=== PATIENT | female | born 2005 | race Caucasian/White ===

== ENCOUNTER 2025-06-22 07:40 | Emergency (ER) | payer OTHER ==
[~2025-06-22] VITALS: Ht 170.2 cm; Wt 90.7 kg
[2025-06-22] MEDS ORDERED: BUSP5 PO (07:54)
[2025-06-22] MEDS ORDERED: LATUDA40 M1 PO (07:54)
[2025-06-22] MEDS ORDERED: AMOCLA875 PO (07:55)
[2025-06-22] MEDS ORDERED: DESV50 PO (07:55)
[2025-06-22] MEDS ORDERED: DIVA250ER PO (07:55)
[2025-06-22] MEDS ORDERED: DESVENLAFAXINE50 MG PO (07:56)
[2025-06-22 08:33] LABS: BASOPHILS ABSOLUTE AUTO 0.02 K/mm3 (0.00-0.23); BASOPHILS PERCENT AUTO 0 % (0-2); EOSINOPHILS ABSOLUTE AUTO 0.00 K/mm3 (0.00-0.68); EOSINOPHILS PERCENT AUTO 0 % (0-6); Hematocrit 40.1 % (33.0-51.0); Hemoglobin 14.0 g/dL (11.5-16.0); IMMATURE GRAN ABSOLUTE AUTO 0.07 K/mm3 (0.00-0.10); IMMATURE GRAN PERCENT AUTO 1 % (0-1); LYMPHOCYTES ABSOLUTE AUTO 1.69 K/mm3 (0.84-5.20); LYMPHOCYTES PERCENT AUTO 13 % (21-46); MONOCYTES ABSOLUTE AUTO 0.91 K/mm3 (0.16-1.47); MONOCYTES PERCENT AUTO 7 % (4-13); Mean Corpuscular HGB Conc 34.9 g/dL (31.5-36.5); Mean Corpuscular Volume 88 fL (80-100); NEUTROPHILS ABSOLUTE AUTO 10.86 K/mm3 (1.96-9.15); NEUTROPHILS PERCENT AUTO 80 % (41-73); NRBC ABSOLUTE 0.00 K/mm3 (0.00-0.02); NRBC Auto 0.0 /100 WBC (0.0-0.2); Platelet Count 317 K/mm3 (150-400); RDW Coefficient Variation 11.8 % (11.7-14.2); RDW Standard Deviation 38.2 fL (35.1-46.3)
[2025-06-22 08:46] LABS: Alanine Aminotransfer (ALT/SGP 17.0 U/L (12-78); Albumin, Blood 3.5 g/dL (3.4-5.0); Albumin/Globulin Ratio 0.8 (0.8-1.8); Anion Gap 9.0 mmol/L (3-11); Aspartate Aminotrans (AST/SGOT 14.0 U/L (12-37); Bilirubin, Total 0.8 mg/dL (0.1-1.0); Blood Urea Nitrogen 12.0 mg/dL (8-24); CO2, Blood 27.0 mmol/L (21-32); Calcium, Blood 9.0 mg/dL (8.5-10.1); Chloride, Blood 106.0 mmol/L (98-108); Creatinine, Blood 0.65 mg/dL (0.40-1.00); Globulin, Blood 4.4 g/dL (2.2-4.0); Glucose, Blood 106.0 mg/dL (70-99); Potassium, Blood 3.8 mmol/L (3.5-5.5); Sodium, Blood 138.0 mmol/L (136-145); Total Protein, Blood 7.9 g/dL (6.4-8.2)
[2025-06-22] MEDS ORDERED: CeFAZolin Sodium 1,000 MG in NS 50 ML IV ONE (09:05)
[2025-06-22] MEDS ORDERED: NS 1,000 ML IV SCH (09:05)
[2025-06-22] MEDS ORDERED: Ketorolac Tromethamine 15mg Vial IV ONE (09:05)
[2025-06-22] MEDS ORDERED: Bactrim Ds Tab1 EACH PO (10:22)
== END 2025-06-22 10:29 | disposition left against medical advice (07) ==
LOC: ER 07:40
PROVIDERS: Physician Assistant
DX: L02.414 Cutaneous abscess of left upper limb (principal); L03.114 Cellulitis of left upper limb; Z79.2 Long term (current) use of antibiotics; Z79.899 Other long term (current) drug therapy; F17.200 Nicotine dependence, unspecified, uncomplicated
CPT/HCPCS: 80053; 85025; 96365; 96375; 99283-25; J0690; J1885; J7030

== ENCOUNTER 2025-06-22 16:29 | Emergency (ER) | payer OTHER ==
[~2025-06-22] VITALS: Ht 170.2 cm; Wt 90.7 kg
[~2025-06-22 16:29] MED LIST: AMOCLA875 PO; BUSP5 PO; Bactrim Ds Tab1 EACH PO; DESV50 PO; DESVENLAFAXINE50 MG PO; DIVA250ER PO; LATUDA40 M1 PO
[2025-06-22] MEDS ORDERED: FLU VACC TS2025-26(6MOS UP)/PF 45 MCG/0.5 ML SYRINGE IM ONE (19:20)
[2025-06-22] MEDS ORDERED: Lactobacil 2-S.Thermo-Bifido 1 1 Cap PO SCH (21:00)
[2025-06-22] MEDS ORDERED: Divalproex Sodium 250 MG TABCR PO SCH (21:00)
== END 2025-06-22 19:33 | disposition left against medical advice (07) ==
LOC: ER 16:29
DX: L03.114 Cellulitis of left upper limb (principal); Z53.29 Procedure and treatment not carried out because of patient's decision for other reasons; Z79.899 Other long term (current) drug therapy; Z79.2 Long term (current) use of antibiotics; F17.200 Nicotine dependence, unspecified, uncomplicated
CPT/HCPCS: 99282